=== PATIENT | female | born 1950 | race Caucasian/White ===

== ENCOUNTER 2021-04-10 12:04 | Emergency (ER) | payer MEDICARE, SELFPAY ==
--- NOTE | ~2021-04-10 | CT_ITS ---
EXAMINATION: CT BRAIN W/O DATE: 04/10/2021 13:11 INDICATION: Left-sided tingling. TECHNIQUE: Computed tomography (CT) of the head was performed without intravenous contrast. The dose- length product was 529.67 mGy-cm. COMPARISON: No prior studies for comparison. FINDINGS: Normal brain parenchymal volume for age. Normal lei-white differentiation. No acute intrac ranial hemorrhage, infarction, mass or mass effect. There are scattered mild periventricular and subc ortical white matter changes, most likely related to small vessel ischemic disease (microangiopathy). No ventriculomegaly or midline shift. Midline sagittal images demonstrate a normal corpus callosum, c raniovertebral junction and sella turcica. Basilar cisterns are patent. Paranasal sinuses and mastoids are pneumatized. No depressed skull fractures. IMPRESSION: 1. No acute intracranial abnormality. 2: Chronic age-related findings. Reviewed, dictated and finalized at location A.
--- NOTE | ~2021-04-10 | XR_ITS ---
EXAMINATION: XR chest 1V EXAM DATE: 04/10/2021 13:15 INDICATION: Stroke symptoms; left-sided numbness. TECHNIQUE: Portable AP frontal chest x-ray was obtained. Comparison is made to prior examination from 2003. FINDINGS: There is an indeterminate subcentimeter right upper lobe nodular density, could be granulom a, lung cancer, bone island. The lungs are otherwise clear. There are no pleural effusions. The car diomediastinal silhouette is within normal limits. There is no pneumothorax suspected. There is mod erate lumbar scoliosis. There are mild bony degenerative changes. There are cholecystectomy clips. IMPRESSION: Indeterminate right upper lobe subcentimeter nodular density; follow-up nonemergent chest CT without contrast recommended. No acute findings. Reviewed, dictated and finalized at location B. IMPRESSION: Indeterminate right upper lobe subcentimeter nodular density; follo w-up nonemergent chest CT without contrast recommended. No acute findings.
--- NOTE | 2021-04-10 12:07 | ECG_ITS ---
Measurements Intervals [place] Rate: 96 P: 59 WA: 158 QRS: 17 QRSD: 118 T: 23 QT: 366 QTc: 465 Interpretive Statements SINUS RHYTHM POSSIBLE LEFT ATRIAL ENLARGEMENT RIGHT BUNDLE BRANCH BLOCK ABNORMAL ECG Electronically Signed On 04-10-2021 17:02:29 CDT by Héctor Salazar D.O.
[2021-04-10 12:09] VITALS: BP 182/89; PULSE 98; RESP 18; TEMP 36.6; O2SAT 98
[2021-04-10 13:12] LABS: Basophils Absolute Auto 0.1 K/mm3 (0.0-0.1); Basophils Percent Auto 1.4 % (0.2-1.2); Eosinophils Absolute Auto 0.1 K/mm3 (0-0.3); Eosinophils Percent Auto 2.2 % (0-4.4); Hematocrit 41.8 % (37.0-47.0); Hemoglobin 14.2 g/dL (12.0-15.0); Immature Granulocyte Absolute 0.02 K/mm3 (0.00-0.031); Immature Granulocyte Percent A 0.3 % (0-0.5); Lymphocytes Absolute Auto 1.52 K/mm3 (0.9-3.2); Lymphocytes Percent Auto 24.3 % (18.3-44.2); Mean Corpuscular Hemoglobin 29.3 pg (26-34); Mean Corpuscular Volume 86.2 fl (80-100); Mean Platelet Volume 10.8 fl (7.4-10.4); Monocytes Absolute Auto 0.5 K/mm3 (0.1-0.6); Neutrophils Percent Auto 63.8 % (45.5-73.1); Platelet Count Result 191 k/mm3 (150-375); Red Blood Count 4.85 M/mm3 (4.2-5.4); Red Cell Distribution Width 13.8 % (11.5-14.5); White Blood Count 6.3 K/mm3 (4.5-10.0)
[2021-04-10] MEDS: diphenhydrAMINE HCl INJ 50 MG/ML VIAL 25 MG IV PUSH (13:17)
[2021-04-10] MEDS: KETOROLAC 30 MG/ML VIAL (*BKC) IV PUSH (13:18)
[2021-04-10] MEDS: METOCLOPRAMIDE HCL INJ 10 MG/2 ML VIAL IV PUSH (13:19)
[2021-04-10 13:22] LABS: Anion Gap 9 mmol/L (8-16); Blood Urea Nitrogen 19 mg/dL (7-17); Calcium 9.6 mg/dL (8.4-10.2); Carbon Dioxide 26 mmol/L (22-30); Chloride 107 mmol/L (98-107); Estimated CRCL calculation 37 ml/min; Estimated Glomerular Filt Rate 55; Glucose 109 mg/dL (65-105); INR 0.9; Potassium 4.1 mmol/L (3.4-5.0); Prothrombin Time 13.2 Seconds (11.1-14.7); Sodium 142 mmol/L (137-145)
[2021-04-10 13:23] LABS: Partial Thromboplastin Time 25.2 SECONDS (22.3-36.8)
[2021-04-10 13:28] LABS: Glucose Point of Care 90 mg/dl (65-105)
[2021-04-10 13:34] LABS: Troponin I < 0.012 ng/mL (0.000-0.034)
--- NOTE | 2021-04-10 13:54 | ED.GENADULT ---
HPI - General Adult General Chief complaint: Neuro Symptoms/Deficit Stated complaint: heavy leg and arm, facial numbness Time Seen by Provider: 04/10/21 12:09 History of Present Illness HPI narrative: Patient is a 71-year-old female who has been having intermittent neurologic symptoms for the last week. When she was in [place] last week she began having a visual aura and then some tingling around her nose and cheek. This is typical of migraines she has been having for 50 years. She has been taking Tylenol because she did develop a headache after that. Since then she has had continued to have a little bit of tingling to the tip of her nose and then today she began to feel like her left arm and left leg were a little bit heavy and that she had some other paresthesia to her left cheek but that it was not numb. She has no functional deficit and she is able to walk and talk and eat and drink without issue. She has no history of CVA. She is not having a headache at this time time. No visual changes at this time. Related Data Home Medications Medication Instructions Recorded Confirmed coenzyme Q10 100 mg capsule 100 mg PO DAILY 04/12/20 01/27/21 multivitamin 1 tablet PO DAILY 04/12/20 01/27/21 Allergies Allergy/AdvReac Type Severity Reaction Status Date / Time chlorpheniramine Allergy Unknown palpitation Verified 04/12/20 11:13 s pseudoephedrine Allergy Unknown palpitation Verified 04/12/20 11:13 s Sulfa (Sulfonamide Allergy Unknown Itching Verified 04/12/20 11:13 Antibiotics) Review of Systems Review of Systems: All systems reviewed & are unremarkable except as noted in HPI and below Constitutional: Constitutional: Denies chills, Denies fever(s) and Denies weakness Eyes: Eyes: Denies change in vision and Denies photophobia ENT: Denies nasal congestion and Denies sore throat Cardiovascular: Cardiovascular: Denies chest pain, Denies rapid heart rate and Denies radiating jaw, neck or arm pain Musculoskeletal: Musculoskeletal: Denies arthralgias, Denies joint swelling and Denies muscle cramps Neurologic: Denies syncope, Reports headache(s), Denies focal weakness and Denies numbness Comments: Paresthesia [facility] Past Medical History Medical History (Updated 04/10/21 @ 14:26 by Casa White MD) Anxiety Chicken pox Cholecystectomy planned 1984 HTN (hypertension) Hyperglycemia Migraine Mixed hyperlipidemia Osteoarthritis Pre-diabetes Tonsillectomy planned 1957 Surgical History Surgical History (Updated 04/12/20 @ 11:34 by Michela Ch) Hx of appendectomy 1984 Family History Family History (Updated 04/12/20 @ 11:36 by Michela Ch) Sibling Hypertension Family history of elevated blood lipids Mother CAD (coronary artery disease) Father Sepsis Social History Social History Smoking status: Never smoker Alcohol intake: current Exam Narrative: Exam Narrative: GENERAL: Well-appearing, well-nourished, and in no acute distress. HEAD: Normocephalic, atraumatic. EYES: PERRLA and EOMI. ENT: Mucous membranes moist. CHEST: Clear to auscultation. No respiratory distress. HEART: Regular rate and rhythm. Normal peripheral pulses. ABDOMEN: Soft, nontender, nondistended. EXTREMITIES: Normal range of motion. No edema. SKIN: Warm, dry, no rash. No evidence of shingles or Ruiz sign. NEURO: No focal deficits. No upper or lower extremity drift. Normal finger-nose testing. Cranial nerves II through XII intact. Alert and oriented x3. PSYCH: Normal mood and affect. Course Course Emergency Course: Patient informed of results. She feels like her symptoms improved after receiving migraine cocktail. I discussed case with Dr. Villanueva who would like to see patient in clinic. He is aware of the lung nodule and also follow that up as well. Symptoms felt to be related to patient's history of migraine. Vital Signs Vital signs: Vital Signs Temperature 97.8 F 0
[2021-04-10 14:37] VITALS: BP 155/89; PULSE 76; RESP 16; O2SAT 97
== END 2021-04-10 14:39 | disposition home or self-care (01) ==
PROVIDERS: Emergency Provider Emergency Medicine; PCP Internal Medicine
DX: G43.909 Migraine, unspecified, not intractable, without status migrainosus (principal); R91.1 Solitary pulmonary nodule; I10 Essential (primary) hypertension; E78.2 Mixed hyperlipidemia; M19.90 Unspecified osteoarthritis, unspecified site; R73.03 Prediabetes; F41.9 Anxiety disorder, unspecified; I45.10 Unspecified right bundle-branch block; R94.31 Abnormal electrocardiogram [ECG] [EKG]
CPT/HCPCS: 36415; 70450; 71045; 80048; 82948; 84484; 85025; 85610; 85730; 93005; 96374; 96375; 99284; J1200; J1885; J2765

== ENCOUNTER 2021-05-11 10:19 | Outpatient (CLI) | payer MEDICARE, SELFPAY ==
--- NOTE | ~2021-05-11 | CT_ITS ---
EXAMINATION: CT diagnostic chest wo con EXAM DATE: 05/11/2021 10:56 INDICATION: R91.1 - Solitary pulmonary nodule. TECHNIQUE: Spiral CT of the chest without contrast. Axial, coronal and sagittal images of the chest were reviewed. Coronal maximum intensity pixel images of chest reviewed. The dose-length product ( DLP) for this examination was 67.40 mGy-cm. The exposure was tailored according to patient size (aut o mA exposure control), and iterative reconstruction (ASIR) was used as additional dose reduction keon hnique. Correlation is made to chest x-ray 06/24/2004. FINDINGS: There is biapical scarring, postinfectious residua. There are no suspicious lung opacities . There is mild emphysema and bronchiectasis, and moderate hyperinflation. There are no pleural or pe ricardial effusions. Tracheobronchial tree is patent. There is no mediastinal, hilar or axillary lymphadenopathy. There is no pneumothorax. Heart normal in size. There is moderate coronary art erial calcification, arterial sclerosis. There are cholecystectomy clips. There is moderate lumbar levoscoliosis. There are no osteoblastic or osteolytic lesions identified. IMPRESSION: 1. Apical postinfectious residual. No suspicious lung opacities. 2. Mild emphysema and bronchiectasis. Moderate hyperinflation. Reviewed, dictated and finalized at location B.
== END 2021-05-11 10:20 | disposition home or self-care (01) ==
LOC: ANHIMG 10:22
PROVIDERS: PCP Internal Medicine; Visit Provider Internal Medicine
DX: R91.1 Solitary pulmonary nodule (principal)
CPT/HCPCS: 71250

== ENCOUNTER → 2022-03-13 09:08 | Outpatient (CLI) | payer MEDICARE, SELFPAY ==
--- NOTE | ~2022-03-13 | US_ITS ---
EXAMINATION: US pelvic complete DATE: 03/13/2022 09:50 INDICATION: Pelvic and perineal pain. UTI. Comparison:No prior studies for comparison. TECHNIQUE: Multiple transabdominal and endovaginal sonographic images of the pelvis performed. FINDINGS: The uterus measures 6.9 x 2.6 x 4.2 cm. The endometrial complex measures 4 mm. The right ovary measures 1.5 x 1 x 1.5 cm and the left ovary measures 2 x 0.9 x 1.3 cm. There are sm all follicles in each ovary. Normal doppler signal in both ovaries. There is no free fluid in the pelvis. There are no abnormal masses seen on either side. IMPRESSION: 1. Unremarkable pelvic ultrasound. Reviewed, dictated and finalized at location A.
== END ==
PROVIDERS: PCP Internal Medicine; Visit Provider Nurse Practitioner
DX: R10.2 Pelvic and perineal pain (principal)
CPT/HCPCS: 76856

== ENCOUNTER → 2022-06-22 12:42 | Outpatient (CLI) | payer MEDICARE, SELFPAY ==
--- NOTE | ~2022-06-22 | US_ITS ---
EXAMINATION: US soft tissue LE RT DATE: 06/22/2022 13:01 INDICATION: Right leg pain medially [id number]. TECHNIQUE: Multiple grayscale and Doppler ultrasound images of the region of concern medially above t he right knee were obtained. COMPARISON: None FINDINGS/IMPRESSION: Normal appearance to the subcutaneous fat and underlying musculature at the region of concern. No abn ormal masses or fluid collections identified. Reviewed, dictated and finalized at location A.
== END ==
PROVIDERS: PCP Nurse Practitioner; Visit Provider Nurse Practitioner
DX: M79.661 Pain in right lower leg (principal)
CPT/HCPCS: 76882

== ENCOUNTER → 2023-01-24 10:11 | Outpatient (CLI) | payer MEDICARE, SELFPAY ==
--- NOTE | ~2023-01-24 | US_ITS ---
EXAMINATION: US soft tissue LE RT DATE: 01/24/2023 12:11 INDICATION: Pain and lump in right posterior thigh TECHNIQUE: Multiple grayscale and Doppler ultrasound images of the right thigh were obtained. COMPARISON: None. FINDINGS: There is no abnormal mass in the patient's area of concern in right posterior thigh. IMPRESSION: 1. No abnormality in the patient's area of concern in right posterior thigh. Reviewed, dictated and finalized at location A.
== END ==
PROVIDERS: PCP Nurse Practitioner; Visit Provider Nurse Practitioner
DX: M25.551 Pain in right hip (principal)
CPT/HCPCS: 76882